=== PATIENT | male | born 1960 | race Hispanic/Latino ===

== ENCOUNTER 2016-08-11 12:56 | Emergency (ER) | payer MEDICAID ==
--- NOTE | 2016-08-11 13:37 | XRay Report ---
Right rib series: Trauma, pain. Multiple views demonstrates a minimally offset fracture involving the anterior ninth rib. No underlying lesion. PA view of the chest shows no other significant findings. Impression: Acute right ninth rib fracture.
--- NOTE | 2016-08-11 14:49 | Emergency Department Report ---
Addendum entered and electronically signed by PERRY ESPINAL PA 08/15/16 14:07 : Original Note: <PERRY ESPINAL - Last Filed: 08/15/16 14:05> ED Fall HPI - General Chief Complaint: Chest Pain Stated Complaint: CHEST PAIN / POSS BROKEN RIBS Time Seen by Provider: 08/11/16 14:25 Source: patient, family Mode of arrival: Ambulatory - History of Present Illness Initial Comments: Patient here reports that he is having right lower rib pain at 8 out of 10. He said he staking Roxicodone because he has chronic pain and he is now out of that. He said that yesterday he tripped over a log and fell and another log and fell on his right side. He reports that pain is aching and throbbing. Denies any nausea vomiting. Denies any head injury. This happened yesterday. Denies any coughing up blood. 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 Witnessed: yes, by family Place Fall Occurred: home Loss of Consciousness: none Prolonged Down Time?: no Symptoms Prior to Fall: none Location: other (pain and right rib) Severity: severe Severity scale (0 -10): 8 Quality: aching Associated Symptoms: denies: headache, neck pain, numbness, weakness, chest paint, shortness of breath, abdominal pain, hematuria, unable to walk, lightheaded, vertigo, confusion - Related Data Previous Rx's Medication Instructions Recorded Last Taken Type Oxycodone HCl [Roxicodone TAB] 15 mg PO Q8H PRN #12 tablet 08/11/16 Unknown Rx Allergies Allergy/AdvReac Type Severity Reaction Status Date / Time acetaminophen [From Lortab] Allergy Itching Verified 08/11/16 13:06 hydrocodone bitartrate Allergy Itching Verified 08/11/16 13:06 [From Lortab] ketorolac tromethamine Allergy Itching Verified 01/14/14 12:36 [From Toradol] ED Review of Systems ROS: Stated complaint: CHEST PAIN / POSS BROKEN RIBS Other details as noted in HPI Comment: All other systems reviewed and negative Constitutional: denies: chills, fever Respiratory: no symptoms reported Cardiovascular: denies: chest pain, palpitations, edema, syncope Gastrointestinal: denies: abdominal pain, nausea, vomiting Genitourinary: denies: urgency, dysuria, frequency, hematuria, discharge, testicular pain, testicular mass Musculoskeletal: other (right rib pain). denies: back pain, arthralgia Skin: denies: rash Neurological: denies: headache, weakness, numbness, paresthesias, confusion, abnormal gait, vertigo ED Past Medical Hx - Past Medical History Previous Medical History?: Yes Hx Arthritis: Yes Hx Psychiatric Treatment: Yes (anxiety) Hx Asthma: Yes - Surgical History Past Surgical History?: Yes Additional Surgical History: R knee replacment, R femur fx (venkatesh) - Family History Family history: hypertension - Social History Smoking Status: Current Every Day Smoker Substance Use Type: None - Medications Home Medications: Home Medications Medication Instructions Recorded Confirmed Last Taken Type Oxycodone HCl [Roxicodone TAB] 15 mg PO Q8H PRN #12 tablet 08/11/16 Unknown Rx ED Physical Exam - General Limitations: No Limitations General appearance: alert, in no apparent distress - Head Head exam: Present: atraumatic, normocephalic, normal inspection - Eye Eye exam: Present: normal appearance, PERRL, EOMI. Absent: periorbital swelling , periorbital tenderness Pupils: Present: normal accommodation - Neck Neck exam: Present: normal inspection, full ROM. 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 No contusion noted.). Absent: respiratory distress, accessory muscle use, decreased breath sounds, prolonged expiratory - Cardiovascular Cardiovascular Exam: Present: normal rhythm, bradycardia (asymptomatic), normal heart sounds, systolic murmur - GI/Abdominal GI/Abdominal exam: Present: soft, normal bowel sounds. Absent: distended, tenderness, guarding, rebound, rigid - Extremities Exam Extremities exam: Present: normal inspection, full ROM, normal capillary refill. Absent: tenderness, pedal edema, joint swelling, calf tenderness - Back Exam Back exam: Present: normal inspection, full ROM. Absent: tenderness, CVA tenderness (R), CVA tenderness (L), muscle spasm, paraspinal tenderness, vertebral tenderness, rash noted - Neurological Exam Neurological exam: Present: alert, oriented X3, normal gait, reflexes normal. Absent: motor sensory deficit - Psychiatric Psychiatric exam: Present: normal affect, normal mood - Skin Skin exam: Present: warm, dry, intact, normal color. Absent: rash ED Course Vital Signs 08/11/16 08/11/16 08/11/16 13:07 14:09 14:56 Temperature 97.6 F 97.5 F L Pulse Rate 59 L 58 L Respiratory 20 16 18 Rate Blood Pressure 109/68 Blood Pressure 98/61 [Right] O2 Sat by Pulse 97 99 Oximetry 08/11/16 16:31 Temperature 97.6 F Pulse Rate 96 H Respiratory 18 Rate Blood Pressure Blood Pressure 99/58 [Right] O2 Sat by Pulse 100 Oximetry - Reevaluation(s) Reevaluation #1: 08/11/16 16:12 Patient given Dilaudid 1 mg IM and Zofran 4 mg ODT ED Medical Decision Making - Radiology Data Radiology results: report reviewed XR rib detail with PA chest: Acute right ninth rib fracture. No underlying lesion. He refuses chest shows no other significant findings. Ninth rib fracture with minimal offset - Medical Decision Making ED course: She with diagnosis of accidental fall, acute right ninth rib fracture with minimal off set. He was treated in the emergency room with Dilaudid 100 mg IM and Zofran 4 mg ODT relief of pain. She was given incentive spirometry and demonstrated use. Trusted them to use incentive spirometry every 3 hours while awake and use Prilosec splint when deep breathing and coughing. Patient discharged home with prescription for oxycodone No. 12 Critical care attestation.: If time is entered above; I have spent that time in minutes in the direct care of this critically ill patient, excluding procedure time. ED Disposition Disposition: DISCHARGED TO HOME OR SELFCARE Is pt being admited?: No Does the pt Need Aspirin: No Condition: Stable Instructions: How to Stop Smoking (ED), How to Use an Incentive Spirometer (ED) , Rib Fracture (ED) Additional Instructions: Please do not operate heavy machinery or drive motor vehicle while taking Roxicodone. Please see her primary care physician for follow-up x-ray within 1 week. Please use incentive spirometer as discussed. Prescriptions: Oxycodone HCl [Roxicodone TAB] 15 mg PO Q8H PRN #12 tablet PRN Reason: Pain Referrals: PRIMARY CAREMD [Primary Care Provider] - 08/13/16 Forms: Accompanied Note, Work/School Release Form(ED) <GLEN ENG - Last Filed: 08/15/16 17:36> ED Course - Reevaluation(s) Reevaluation #2: Obviously 100 mg Dilaudid IM was entered in error. 08/15/16 17:35
[2016-08-11] MEDS: DILAUDID IM ONE (14:56)
[2016-08-11] MEDS: ZOFRAN ODT PO ONE (14:57)
[2016-08-11] MEDS: DILAUDID IV ONE (14:58)
[2016-08-11 16:32] VITALS: BP 99/58
== END 2016-08-11 16:32 | disposition home or self-care (01) ==
LOC: ED 12:56
DX: S22.31XA Fracture of one rib, right side, initial encounter for closed fracture (principal); F17.200 Nicotine dependence, unspecified, uncomplicated; J45.909 Unspecified asthma, uncomplicated; W18.30XA Fall on same level, unspecified, initial encounter; Y93.9 Activity, unspecified; Y92.9 Unspecified place or not applicable; Y99.9 Unspecified external cause status
CPT/HCPCS: 71100; 96372; 99283; J1170; Q0162